=== PATIENT | female | born 2000 | race Asian ===

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

== ENCOUNTER → 2023-09-02 15:38 | Outpatient (CLI) | payer SELFPAY ==
--- NOTE | ~2023-09-02 | XR_ITS ---
[id number] 09/02/2023 16:05 INDICATION: Left knee pain PROCEDURE: 2 views left knee COMPARISON: No prior studies for comparison. FINDINGS: Fracture, dislocation or subluxation is not identified. No significant joint effusion. The soft tissues appear within normal limits. No foreign bodies are identified. IMPRESSION: 1: NO ACUTE BONE OR JOINT ABNORMALITY IDENTIFIED. Reviewed, dictated and finalized at location L. FICATION OPERATOR
== END ==
PROVIDERS: PCP Nurse Practitioner Family; Visit Provider Nurse Practitioner Family
DX: M25.562 Pain in left knee (principal)
CPT/HCPCS: 73560